=== PATIENT | female | born 1990 | race Caucasian/White ===

== ENCOUNTER 2018-09-04 10:15 | Inpatient (IN) ==
[~2018-09-04 10:15] MED LIST: OXYTOCIN 20 UNITS in RINGER'S SOLUTION,LACTATED 1,000 ML IV ONE; RINGER'S SOLUTION,LACTATED 1,000 ML IV PRN; ceFAZolin SODIUM/DEXTROSE,ISO 2 GM/50 ML BAG IV ONE
[2018-09-04] MEDS ORDERED: diphenhydrAMINE HCL 50 MG/ML VIAL IV ONE (10:28)
[2018-09-04 10:29] LABS: Hemoglobin 11.9 gm/dL (12.5-16.0); Mean Cell Volume 89.1 fl (78-100); Mean Corpuscular Hemoglobin 29.5 pg (27-31); Mean Corpuscular Hgb Conc 33.1 g/dl (32-36); Mean Platelet Volume 10.9 fl (8-12.5); Neutrophil # 7.8 K/mm3 (1.3-6.0); Platelet Count 145 K/mm3 (150-450); Red Blood Count 4.04 M/mm3 (4.2-5.4); Red Cell Distribution Width 12.9 % (11.5-14.0); White Blood Count 9.7 K/mm3 (4.0-10.5)
--- NOTE | 2018-09-04 10:42 | HP ---
Chief Complaint - Chief Complaint Date of Service: 09/04/18 Time of Service: 10:29 Chief Complaint: Headache, contractions History of Present Illness: 27 yo at 38 5/7 wks presents to office complaining of Headache for past 2 days and frequent contractions. Patient rates her EPSTEIN as 5/10, yesterday was 4/10 - no relief with rest or tylenol. Contractions have been going on for several weeks, but have increased intensity last night. Denies LOF, vaginal bleeding, recent coitus, epigastric pain, edema, or decreased movement. This complicated by anemia, bladder endometriosis with darius hematuria, prior c/s, h/o migraines, threatened PTL (BTMZ given 08/15 and 08/16), thrombocytopenia, and now GHTN with possible severe features. Rh positive Rubella immune GBS positive Medical History (Updated 09/03/18 @ 10:22 by Alfredito Stokes RN) Threatened labor (Acute) Bladder pain (Acute) Endometriosis of bladder (Chronic) Hx of migraines (Chronic) Endometriosis (Chronic) Body piercing Onset Date: Unknown Congenital hypertrophic pyloric stenosis Onset Date: ~1988 Contraception, generic surveillance Onset Date: 08/25/13 Dysmenorrhea Onset Date: 04/03/14 Endometriosis, bladder Onset Date: 06/14/17 Stage 4-severe UIHC Irregular menstrual bleeding Onset Date: 04/20/15 Menorrhagia Onset Date: 04/03/14 Migraine Onset Date: Unknown Previous section complicating Onset Date: 12/16/15 16-Breech presentation Tattoos Thrombocytopenia Onset Date: 09/03/18 w/ Wears glasses [place] teeth extracted Onset Date: 2007 , spontaneous Onset Date: ~06/2017 Anemia (Resolved) Onset Date: Unknown High school and with pregnancies in 2016 & 2019. Breech presentation (Resolved) Onset Date: Unknown Infertility associated with anovulation (Resolved) Mother currently breast-feeding (Resolved) Onset Date: Unknown Nonallopathic lesion of rib cage (Resolved) Left Rib 7. Surgical History: Surgical History (Updated 08/15/18 @ 12:08 by Blair Martinez DO) Previous section (Chronic) S/P pyloromyotomy, follow-up exam Onset Date: 1988 Status post tonsillectomy Onset Date: 1993 Hx of cystoscopy Onset Date: ~04/2017 Dr. Benito Status post primary low transverse section (Resolved) Onset Date: Unknown Family History: Family History (Updated 09/18/17 @ 10:20 by Jacinta Pruett LPN) Father Hypocholesteremia Grandfather Parkinson's disease maternal Grandmother Hypertension maternal Dementia maternal Mother Hypertension Abnormal Pap smear of cervix Social History: Preferred Language Armenian Smoking Status Never smoker Abuse History No History of abuse Psych History Hx of Anxiety (Last Reviewed 09/04/18 @ 09:43 by Ria Recinos RN) No Social History Section defined Review Of Systems (GEN) - Review of Systems Generalized/Overall Review: Present: Malaise EENTM: Present: No Symptoms Reported Respiratory: Present: No Symptoms Reported Cardiac: Present: No Symptoms Reported Abdominal: Present: Other - contractions Genitourinary: Present: Frequency, Hematuria Musculoskeletal: Present: No Symptoms Reported Neurological: Present: Headache Skin: Present: No Symptoms Reported Endocrine: Present: No Symptoms Reported Allergies/Adverse Reactions: Allergies Allergy/AdvReac Type Severity Reaction Status Date / Time lactose AdvReac Mild Diarrhea Verified 09/04/18 10:34 Home Medications: HOME MEDICATIONS Vits96/Iron Fum/Folic [ S] 1 tab PO DAILY 12/16/15 [Last Taken 12/16/15 06:00] Calcium Carbonate [Calcium] 600 mg PO BID 04/25/17 [Last Taken Unknown] ferrous sulfate 325 mg (65 mg iron) tablet,delayed release 325 mg PO DAILY #30 tab 06/19/18 [Last Taken Unknown] ascorbic acid (vitamin C) 500 mg tablet 500 mg PO DAILY 08/01/18 [Last Taken Unknown] Exam - Exam Constitutional: Present: Alert, Oriented x3, Cooperative, No distress ENT Exam: Present: hearing grossly normal Neck: Present: non-tender Back Exam: Present: no CVA tenderness Breasts: Present: Exam deferred Respiratory: Present: lungs clear, no respiratory distress Cardiovascular/Chest: Present: regular rate, rhythm, no edema Abdomen: Present: soft, no rebound tenderness, other - Gravid /Rectal: Present: Exam deferred Extremity: Present: no pedal edema, no calf tenderness Neurologic: Present: alert, normal mood/affect, oriented x 3, other - DTR 2/4 bilateral patella with no clonus Appearance: Present: appropriate appearance, appropriate insight Eye contact: Present: cooperative, good eye contact, normal speech Thoughts: Present: normal thought pattern Assessment/Plan - Assessment/Plan (1) Gestational HTN Assessment: Admit for RLTCS. Benadryl/Reglan EPSTEIN protocol - if EPSTEIN persists or significant lab abnormalities, will start on Magnesium sulfate for seizure prophylaxis. Sz precautions for now. Problem: Acute Qualifiers: Trimester: third trimester Qualified Code(s): O13.3 - Gestational [-induced] hypertension without significant proteinuria, third trimester (2) Headache Problem: Acute Qualifiers: Headache type: unspecified Headache chronicity pattern: acute headache Intractability: intractable Qualified Code(s): R51 - Headache (3) Thrombocytopenia affecting Problem: Acute (4) Endometriosis of bladder Problem: Chronic (5) Hx of migraines Problem: Chronic (6) Previous section Problem: Chronic
[2018-09-04] MEDS: METOCLOPRAMIDE HCL 5 MG/ML VIAL IV PRN ×2 (10:46→11:17)
--- NOTE | 2018-09-04 11:01 | ANES ---
Anesthesia Pre Procedure Eval HOME MEDICATIONS Vits96/Iron Fum/Folic [ S] 1 tab PO DAILY 12/16/15 [Last Taken 12/16/15 06:00] Calcium Carbonate [Calcium] 600 mg PO BID 04/25/17 [Last Taken Unknown] ferrous sulfate 325 mg (65 mg iron) tablet,delayed release 325 mg PO DAILY #30 tab 06/19/18 [Last Taken Unknown] ascorbic acid (vitamin C) 500 mg tablet 500 mg PO DAILY 08/01/18 [Last Taken Unknown] Allergies/Adverse Reactions: Allergies Allergy/AdvReac Type Severity Reaction Status Date / Time lactose AdvReac Mild Diarrhea Verified 09/04/18 10:34 - Planned Procedure Planned Procedure: Repeat , poss. Abdominal Scar Revision Medication List Reviewed:: Yes Allergies Verified: Yes Medical History (Updated 09/04/18 @ 10:42 by Blair Martinez DO) Threatened labor (Acute) Bladder pain (Acute) Endometriosis of bladder (Chronic) Hx of migraines (Chronic) Endometriosis (Chronic) Body piercing Onset Date: Unknown Congenital hypertrophic pyloric stenosis Onset Date: ~1988 Contraception, generic surveillance Onset Date: 08/25/13 Dysmenorrhea Onset Date: 04/03/14 Endometriosis, bladder Onset Date: 06/14/17 Stage 4-severe UIHC Irregular menstrual bleeding Onset Date: 04/20/15 Menorrhagia Onset Date: 04/03/14 Migraine Onset Date: Unknown Previous section complicating Onset Date: 12/16/15 16-Breech presentation Tattoos Thrombocytopenia Onset Date: 09/03/18 w/ Wears glasses [place] teeth extracted Onset Date: 2007 , spontaneous Onset Date: ~06/2017 Anemia (Resolved) Onset Date: Unknown High school and with pregnancies in 2016 & 2019. Breech presentation (Resolved) Onset Date: Unknown Infertility associated with anovulation (Resolved) Mother currently breast-feeding (Resolved) Onset Date: Unknown Nonallopathic lesion of rib cage (Resolved) Left Rib 7. Surgical History (Updated 09/04/18 @ 10:42 by Blair Martinez DO) Previous section (Chronic) S/P pyloromyotomy, follow-up exam Onset Date: 1988 Status post tonsillectomy Onset Date: 1993 Hx of cystoscopy Onset Date: ~04/2017 Dr. Benito Status post primary low transverse section (Resolved) Onset Date: Unknown Family History (Updated 09/18/17 @ 10:20 by Jacinta Pruett LPN) Father Hypocholesteremia Grandfather Parkinson's disease maternal Grandmother Hypertension maternal Dementia maternal Mother Hypertension Abnormal Pap smear of cervix - Family Anesthesia History Family History:: no untoward family reactions to anesthesia - Airway/Neck/Teeth Within Normal Limits:: Yes Teeth Condition: intact Neck Exam: full range of motion Mallampatti Score: 1 Thyromental (T-M) distance: > 6 cm Mandibulo Hyoid distance: > 3 cm - Respiratory Respiratory Physical: lungs clear Smoking Status: Never smoker Sleep Apnea currently treated: No Sleep Apnea by current assessment: No - Cardiovascular Tolerate Activity: Good Heart Sounds: S1 & S2, Regular - Anesthesia Assessment and Plan ASA Class: PS, II Anesthesia Type Plan: Spinal - bilat TAP block for postop analgesia Planned difficult intubation/equipment available: No
[2018-09-04 11:09] LABS: Albumin * 3.1 gm/dl (3.4-5.0); Anion Gap 15.3 mmol/L (6.8-13.8); BUN/Creatinine Ratio 10.6 (9.0-21.6); Bilirubin, Total 0.5 mg/dL (0.0-1.1); Ca. Corrected For Albumin 9.2 mg/dL (8.4-10.2); Calcium * 8.8 mg/dL (7.9-10.9); Carbon Dioxide 25.1 mmol/L (24-32.6); Potassium 3.4 mmol/L (3.4-4.6); Total Protein 6.4 gm/dL (6.2-8.2)
[2018-09-04 12:03] LABS: Random Urine Total Protein 17.4 mg/dL (0-12)
[2018-09-04 12:08] LABS: Cocaine Ur Negative (NEGATIVE); Urine Barbiturate Negative (NEGATIVE); Urine Benzodiazepines Negative (NEGATIVE); Urine Opiates Negative (NEGATIVE); Urine PCP Negative (NEGATIVE); Urine THC Negative (NEGATIVE)
[2018-09-04] MEDS ORDERED: ONDANSETRON HCL/PF 2 MG/ML VIAL IV PRN (13:56)
[2018-09-04] MEDS ORDERED: SIMETHICONE 80 MG TAB.CHEW PO PRN (13:56)
[2018-09-04] MEDS ORDERED: BISACODYL 10 MG SUPP.RECT RC PRN (13:56)
[2018-09-04] MEDS ORDERED: IBUPROFEN 800 MG TABLET PO PRN (13:56)
[2018-09-04] MEDS ORDERED: SENNOSIDES 8.6 MG TABLET PO PRN (13:56)
--- NOTE | 2018-09-04 14:05 | OR ---
Operative Report - Dictated Report Narrative: Indication: 27-year-old 2 para 1 at 38-5/7 weeks presents to the office complaining of intractable headache, elevated blood pressures and contractions of increasing frequency and intensity. status: Planned Pre Operative Diagnosis: 38-5/7 week intrauterine . Prior section. Labor. Gestational hypertension. Post Operative Diagnosis: Same. Endometrial implants on anterior fundus of uterus Procedure: Repeat low transverse section. Coagulation of endometriosis Surgeon: Brett Martinez DO Gas Flow Regulator: OR Staff Anesthesia: Spinal with duramorph, TAP block Estimated Blood Loss: 600 mL Urine Output: 300 mL clear urine Fluids Replacement: 1500 mL of crystalloid Drains: Moise to gravity Surgical Complications: None Specimens: Placenta to pathology Findings: Female born at 1252 on 09/04/2020 with Apgars 9 and 9 weighing 2964 g in darius breech presentation. Normal uterus, tubes, ovaries Technique: The patient was taken to the operating room and placed in dorsal supine position with a left lateral tilt. After adequate spinal anesthesia, moise catheter inserted, SCDs placed, and 2 g of Ancef given preoperatively, the abdominal cavity was entered using sharp and blunt dissection. Two rolled laps were placed in the pericolic gutters on either side of the uterus. A transverse incision was made in the lower uterine segment and extended laterally and upwardly with digital traction. Clear fluid was noted upon amniotomy. The was delivered easily. The cord was clamped and cut and was handed off to awaiting pole lift operator. The placenta was allowed to deliver spontaneously. The uterus was cleared of clot and debris. Uterine incision was closed with 0 Vicryl using a running stitch. A second imbricating layer was placed. Uterine myometrium and serosa on the left lateral third of the uterus was thin and friable. This area was oversewn with 0 Vicryl suture to provide excellent hemostasis. Hemorrhagic clusters were noted scattered on the anterior fundus of the uterus. These areas were destroyed with cautery and covered with a sheet of Interceed. The rolled laps were removed from the abdominal cavitiy. The peritoneum was closed with a running 3-0 Monocryl. The same suture was used to approximate the rectus and pyramidalis muscles. The fascia was closed with a running 0 Vicryl. The subcutaneous layer was closed with a running 3-0 Monocryl. The same suture was used to approximate the subdermal layer. The skin was closed with a running 4-0 Monocryl and Dermabond. Sponge, lap, needle, and instrument count were correct x 2. Disposition: To post anesthesia care unit in good condition History for MU History for MU Definition: * The number of deliveries resulting in a live the patient experienced prior to current hospitalization * The previous delivery of live twins or any live multiple gestation is considered one live event. *If primagravida or nulliparous is documented select zero for the number of previous live births. Live Events: Live Events: 1
--- NOTE | 2018-09-04 14:07 | ANES ---
Anesthesia Procedure Note Procedure Note: ANESTHESIA PROCEDURE NOTE Date of Procedure: [09/04/2018] Time of procedure: 1350. Performed by: MILEY Moreno CRNA, MSN Boner Meat: Ria Gardiner RN. Preprocedure diagnosis: Post section pain. Post procedure diagnosis: Same. Procedure: Bilateral TAP block Indications: Post section pain relief. Findings: See below. Details of the procedure: The patient was brought to PACU and placed in the supine position. The patient was prepped with chlorhexidine and using ultrasound guidance the 3 abdominal muscular planes were identified and lidocaine 1% was infiltrated to the skin of the intended injection site. Under ultrasound guidance the the internal oblique and transverse this abdominis muscle layers were approached with visualization of a 4 inch block needle until the tip of the needle rested in the plane between the muscles. 25 mL bupivacaine 0.5% with 1-200,000 epinephrine was injected and the procedure was repeated on the other side. Please see radiology/ultrasound report for details and images of the procedure. EBL: 0 Fluids: N/A. Specimen: N/A. Post procedure condition: The patient tolerated the procedure well. No complications were noted. Thank you for this consultation. Silvio Garcia CRNA, ARNP, MSN
--- NOTE | 2018-09-04 14:07 | ANES ---
Post Anesthesia Discharge - Transfer of Care Transfer of Care handoff given to nurse: Yes - Discharge from PACU Discharge from PACU when meets criteria: Yes - Comfortable in PACU.
[2018-09-04] MEDS: oxyCODONE HCL/ACETAMINOPHEN 1 TAB TABLET PO PRN ×3 (14:56→21:03)
[2018-09-04] MEDS: IBUPROFEN 800 MG TABLET PO PRN ×2 (14:56→21:12)
[2018-09-04] MEDS: CALCIUM CARBONATE 500 MG TAB.CHEW PO SCH (21:03)
[2018-09-04] MEDS: DOCUSATE SODIUM 100 MG CAPSULE PO SCH (21:03)
[2018-09-04] MEDS: ENOXAPARIN SODIUM 40 MG/0.4 ML SYRG SC SCH (21:12)
--- NOTE | 2018-09-05 01:24 | ANES ---
Post Anesthesia Assessment - Vital Signs Vitals: Last Vital Signs Temp 36.2 C 09/04/18 17:15 Pulse 75 09/05/18 00:42 Resp 16 09/05/18 00:42 BP 108/58 09/05/18 00:42 Pulse Ox 99 09/05/18 00:42 Airway Patency: Normal - Mental Status Level Of Consciousness: Awake, Alert, Appropriate - Pain Level Pain Score: 0 - N/V Assessment Nausea/Vomiting Presence: None Dehydration:: No
[2018-09-05] MEDS: oxyCODONE HCL/ACETAMINOPHEN 1 TAB TABLET PO PRN ×7 (03:25→23:20)
[2018-09-05] MEDS: DOCUSATE SODIUM 100 MG CAPSULE PO SCH ×3 (06:56→20:11)
--- NOTE | 2018-09-05 07:44 | PN ---
Subjective - Date and Time Seen Date: 09/05/18 Time: 07:43 Objective - Vitals Vitals: Last Vital Signs Temp 36.2 C 09/04/18 17:15 Pulse 75 09/05/18 00:42 Resp 16 09/05/18 00:42 BP 108/58 09/05/18 00:42 Pulse Ox 99 09/05/18 00:42 Patient denies complaints. Tolerating regular diet. Ambulating without difficulty. Pain well controlled. Lochia wnl. Abdomen - soft, appropriately tender Incision - clean, dry, intact Uterus - firm, at umbilicus -1 No calf tenderness Impression: Post op day #1 s/p repeat section with coagulation of uterine endometriosis. Plan: Continue routine post-operative/ care - Abnormal Lab Findings Abnormal Lab Findings: Abnormal Lab Results 09/04/18 09/04/18 09/04/18 Range/Units 10:25 10:28 11:30 RBC 4.04 L (4.2-5.4) M/mm3 Hgb 11.9 L (12.5-16.0) gm/dL Hct 36.0 L (37.0-47.0) % Plt Count 145 L (150-450) K/mm3 Immature Gran % (Auto) 0.60 H (0.001-0.429) % Immature Gran # (Auto) 0.06 H (0.000-0.0310) K/mm3 Neutrophils % 80.0 H (42-75.0) % Lymphocytes % 14.5 L (20-51) % Neutrophils # 7.8 H (1.3-6.0) K/mm3 Lymphocytes # 1.41 L (1.5-3.5) k/mm3 Anion Gap 15.3 H (6.8-13.8) mmol/L Random Glucose 112 H D (70-110) mg/dL Albumin 3.1 L (3.4-5.0) gm/dl U Random Total Protein 17.4 H (0-12) mg/dL Cauti Physician Documentation - Urinary Catheter Management Urethral ([place]) Date of Insertion: 09/04/18 Time of Insertion: 12:30 Assessment/Plan - Problems/Diagnosis (1) Gestational HTN Problem: Acute Qualifiers: Trimester: third trimester Qualified Code(s): O13.3 - Gestational [-induced] hypertension without significant proteinuria, third trimeste r (2) Headache Problem: Acute Qualifiers: Headache type: unspecified Headache chronicity pattern: acute headache Intractability: intractable Qualified Code(s): R51 - Headache (3) Thrombocytopenia affecting Problem: Acute (4) Endometriosis of bladder Problem: Chronic (5) Hx of migraines Problem: Chronic (6) Previous section Problem: Chronic
[2018-09-05] MEDS: IBUPROFEN 800 MG TABLET PO PRN ×3 (09:56→23:20)
[2018-09-05] MEDS: FERROUS SULFATE 325 MG TABLET PO SCH (09:56)
[2018-09-05] MEDS: PRENATAL VITS96/IRON FUM/FOLIC 1 TAB TABLET PO SCH (09:56)
[2018-09-05] MEDS: ASCORBIC ACID 500 MG TABLET PO SCH (09:57)
[2018-09-05] MEDS: CALCIUM CARBONATE 500 MG TAB.CHEW PO SCH ×2 (09:59→20:13)
[2018-09-05] MEDS: ENOXAPARIN SODIUM 40 MG/0.4 ML SYRG SC SCH (21:53)
[2018-09-06] MEDS: IBUPROFEN 800 MG TABLET PO PRN ×3 (05:34→18:06)
[2018-09-06] MEDS: oxyCODONE HCL/ACETAMINOPHEN 1 TAB TABLET PO PRN ×3 (05:35→18:05)
[2018-09-06] MEDS: DOCUSATE SODIUM 100 MG CAPSULE PO SCH ×2 (08:39→20:31)
[2018-09-06] MEDS: CALCIUM CARBONATE 500 MG TAB.CHEW PO SCH ×2 (08:39→20:31)
[2018-09-06] MEDS: ASCORBIC ACID 500 MG TABLET PO SCH (08:39)
[2018-09-06] MEDS: PRENATAL VITS96/IRON FUM/FOLIC 1 TAB TABLET PO SCH (08:39)
[2018-09-06] MEDS: FERROUS SULFATE 325 MG TABLET PO SCH (08:39)
--- NOTE | 2018-09-06 11:24 | PN ---
Subjective - Date and Time Seen Date: 09/06/18 Time: 11:23 Objective - Vitals Vitals: Last Vital Signs Temp 36.4 C 09/06/18 07:20 Pulse 90 09/06/18 07:20 Resp 16 09/06/18 07:20 BP 116/62 09/06/18 07:20 Pulse Ox 97 09/06/18 07:20 Patient denies complaints. Tolerating regular diet. Ambulating without difficulty. Pain well controlled. Lochia wnl. Abdomen - soft, appropriately tender Incision - clean, dry, intact Uterus - firm, at umbilicus -2 No calf tenderness Impression: Post op day #2 s/p repeat section with coagulation of uterine endometriosis. Plan: Continue routine post-operative/ care Cauti Physician Documentation - Urinary Catheter Management Urethral ([place]) Date of Insertion: 09/04/18 Time of Insertion: 12:30 Assessment/Plan - Problems/Diagnosis (1) Gestational HTN Problem: Acute Qualifiers: Trimester: third trimester Qualified Code(s): O13.3 - Gestational [-induced] hypertension without significant proteinuria, third trimester (2) Headache Problem: Acute Qualifiers: Headache type: unspecified Headache chronicity pattern: acute headache Intractability: intractable Qualified Code(s): R51 - Headache (3) Thrombocytopenia affecting Problem: Acute (4) Endometriosis of bladder Problem: Chronic (5) Hx of migraines Problem: Chronic (6) Previous section Problem: Chronic
[2018-09-06] MEDS: ENOXAPARIN SODIUM 40 MG/0.4 ML SYRG SC SCH (21:52)
[2018-09-07] MEDS: IBUPROFEN 800 MG TABLET PO PRN ×3 (00:18→12:38)
[2018-09-07] MEDS: oxyCODONE HCL/ACETAMINOPHEN 1 TAB TABLET PO PRN ×3 (00:18→12:38)
--- NOTE | 2018-09-07 07:20 | PN ---
Subjective - Date and Time Seen Date: 09/07/18 Time: : Objective - Vitals Vitals: Last Vital Signs Temp 36.8 C 09/07/18 00:53 Pulse 90 09/07/18 00:53 Resp 16 09/07/18 00:53 BP 125/54 09/07/18 00:53 Pulse Ox 97 09/07/18 00:53 Patient denies complaints. Ambulating without difficulty. Tolerating regular diet. Pain well controlled. Lochia wnl. Abdomen - soft, appropriately tender Incision - clean, dry, intact Uterus - firm, at umbilicus -3 No calf tenderness Impression: Post op day #3 s/p repeat section. Coagulation of endometriosis Plan: Routine discharge instructions Cauti Physician Documentation - Urinary Catheter Management Urethral ([place]) Date of Insertion: 09/04/18 Time of Insertion: 12:30 Assessment/Plan - Problems/Diagnosis (1) Gestational HTN Problem: Acute Qualifiers: Trimester: third trimester Qualified Code(s): O13.3 - Gestational [-induced] hypertension without significant proteinuria, third trimeste r (2) Headache Problem: Acute Qualifiers: Headache type: unspecified Headache chronicity pattern: acute headache Intractability: intractable Qualified Code(s): R51 - Headache (3) Thrombocytopenia affecting Problem: Acute (4) Endometriosis of bladder Problem: Chronic (5) Hx of migraines Problem: Chronic (6) Previous section Problem: Chronic
[2018-09-07] MEDS: PRENATAL VITS96/IRON FUM/FOLIC 1 TAB TABLET PO SCH (10:09)
[2018-09-07] MEDS: ASCORBIC ACID 500 MG TABLET PO SCH (10:10)
[2018-09-07] MEDS: FERROUS SULFATE 325 MG TABLET PO SCH (10:10)
[2018-09-07] MEDS: DOCUSATE SODIUM 100 MG CAPSULE PO SCH (10:10)
[2018-09-07 13:02] VITALS: BP 102/69
== END 2018-09-07 15:45 | disposition home or self-care (01) | DRG 787 ==
LOC: OB 10:15 → MS 09-05 17:40
PROVIDERS: ADMIT Obstetrics & Gynecology; ATTEND Obstetrics & Gynecology
CPT/HCPCS: 36415; 59025; 80053; 80307; 82570; 84155; 84156; 85025